=== PATIENT | male | born 1940 | race Caucasian/White ===

== ENCOUNTER → 2018-12-06 | Outpatient (CLI) | payer MEDICARE, OTHER ==
[~2018-12-06] MED LIST: AMLO5 PO; AMOX875 PO; ASPI325 PO; CLON.1 PO; LEVFLO500 PO; LEVSOD100 PO; LISI20 PO; Mobic15 MG PO; XARELTO20 MG PO
== END | disposition home or self-care (01) ==
LOC: LAB EV 07:50
DX: J44.1 Chronic obstructive pulmonary disease with (acute) exacerbation (principal)
CPT/HCPCS: 87070; 87205

== ENCOUNTER 2019-12-19 08:32 | Day surgery (SDC) | payer MEDICARE, OTHER ==
[~2019-12-19] VITALS: Ht 172.7 cm; Wt 82.3 kg
[~2019-12-19 08:32] MED LIST changes: +ALBU90OI INH; +AMLODIPINE-ATO1 EACH PO; +BUDE.25 NEB; +CALCIUM PO; +GABA300 PO; +Glucosamine Co1 EAC1 PO; +LORA.5 PO; +THERA1 EACH PO; +TIOT18 INH
--- NOTE | 2019-12-19 10:10 | NUR ---
"DAY SURGERY RN | TO OR BOTH DOCTORS AND CHIEF RESERVOIR ENGINEERING HAVE SEEN. UP TO BATHROOM PRIOR TO PROCEDURE. ALL CHECKS DONE. REPORT TO SALVATORE OSORIO. TO OR."
--- NOTE | 2019-12-19 13:48 | NUR ---
PT GIVEN NORCO FOR PAIN. PT STATES HIS PAIN IN 8 ON A SCALE FROM 0 TO 10. PT HAS TAKEN CRACKERS AND DRANK A FULL GLASS OF WATER.
--- NOTE | 2019-12-19 14:58 | NUR ---
ALL IV DC'D INTACT. DC INSTRUCTIONS REVIEWED WITH PATIENT AND . PT REPORTS PAIN IMPROVING PT TAKEN OUT OF DEPARTMENT VAI WHEELCHAIR BY PIEDAD
--- NOTE | 2019-12-19 16:03 | NUR ---
Patient States Post-Procedure ride home has been arranged. Discharged via wheelchair to private car for ride home. Discharge instructions reviewed with patient. Patient verbalizes understanding. Copy given to patient to take home.
== END 2019-12-19 14:58 | disposition home or self-care (01) ==
LOC: ORSCMMR 08:32 → ORD 10:00 → ORSCMMR 14:58
PROVIDERS: Surgery
PROC: 8E0W4CZ Robotic Assisted Procedure of Trunk Region, Percutaneous Endoscopic Approach (ICD-10-PCS; principal; 2019-12-19 10:00)
PROC: 0WUF0JZ Supplement Abdominal Wall with Synthetic Substitute, Open Approach (ICD-10-PCS; principal; 2019-12-19 10:00)
PROC: 0YU54JZ Supplement Right Inguinal Region with Synthetic Substitute, Percutaneous Endoscopic Approach (ICD-10-PCS; principal; 2019-12-19 10:00)
DX: K40.90 Unilateral inguinal hernia, without obstruction or gangrene, not specified as recurrent (principal); K42.9 Umbilical hernia without obstruction or gangrene; I10 Essential (primary) hypertension; I25.10 Atherosclerotic heart disease of native coronary artery without angina pectoris; J44.9 Chronic obstructive pulmonary disease, unspecified; G47.33 Obstructive sleep apnea (adult) (pediatric); Z87.891 Personal history of nicotine dependence; E03.9 Hypothyroidism, unspecified; F03.90 Unspecified dementia, unspecified severity, without behavioral disturbance, psychotic disturbance, mood disturbance, and anxiety; Z79.899 Other long term (current) drug therapy
CPT/HCPCS: 49650; 49585; S2900; A9270-GY; C1781; J0690; J1100; J2250; J2370; J2405; J2704; J2710; J3010; J7120

== ENCOUNTER → 2021-07-19 | Outpatient (CLI) | payer MEDICARE, OTHER | END | disposition home or self-care (01) | LOC: LAB SHORT 14:30 | DX: D48.5 Neoplasm of uncertain behavior of skin (principal) | CPT/HCPCS: 88305 ==

== ENCOUNTER 2021-08-02 20:18 | Observation (INO) | payer MEDICARE, OTHER ==
[~2021-08-02] VITALS: Ht 172.7 cm; Wt 83.7 kg
[~2021-08-02 20:18] MED LIST changes: -AMLODIPINE-ATO1 EACH PO; -BUDE.25 NEB; -GABA300 PO; -LEVSOD100 PO; -XARELTO20 MG PO
[2021-08-02 21:08] LABS: BASOPHILS ABSOLUTE AUTO 0.06 K/mm3 (0.00-0.23); BASOPHILS PERCENT AUTO 1 % (0-2); EOSINOPHILS ABSOLUTE AUTO 0.01 K/mm3 (0.00-0.68); EOSINOPHILS PERCENT AUTO 0 % (0-6); Hematocrit 39.2 % (37.0-53.0); Hemoglobin 13.1 g/dL (13.5-17.5); IMMATURE GRAN ABSOLUTE AUTO 0.03 K/mm3 (0.00-0.10); IMMATURE GRAN PERCENT AUTO 0 % (0-1); LYMPHOCYTES ABSOLUTE AUTO 0.37 K/mm3 (0.84-5.20); LYMPHOCYTES PERCENT AUTO 4 % (21-46); MONOCYTES ABSOLUTE AUTO 0.82 K/mm3 (0.16-1.47); MONOCYTES PERCENT AUTO 9 % (4-13); Mean Corpuscular HGB 31.4 pg (26.0-34.0); Mean Corpuscular HGB Conc 33.4 g/dL (31.5-36.5); Mean Corpuscular Volume 94 fL (80-100); Mean Platelet Volume 9.9 fL (9.1-12.4); NEUTROPHILS ABSOLUTE AUTO 7.54 K/mm3 (1.96-9.15); NEUTROPHILS PERCENT AUTO 85 % (41-73); Platelet Count 197 K/mm3 (150-400); RDW Standard Deviation 44.7 fL (35.1-46.3); Red Blood Cell Count 4.17 M/mm3 (4.30-5.90); White Blood Cell Count 8.83 K/mm3 (4.00-11.30)
[2021-08-02 21:29] LABS: Albumin, Blood 2.9 g/dL (3.4-5.0); Albumin/Globulin Ratio 0.9 (0.8-1.8); Bilirubin, Total 0.5 mg/dL (0.1-1.0); Bun/Creatinine Ratio 11.9 (12.0-20.0); Calcium, Blood 7.8 mg/dL (8.5-10.1); Creatinine, Blood 1.18 mg/dL (0.60-1.20); Globulin, Blood 3.4 g/dL (2.2-4.0); Total Protein, Blood 6.3 g/dL (6.4-8.2); Troponin I 0.059 ng/mL (0.000-0.040)
[2021-08-02] MEDS ORDERED: TRIDERM28.4 GM TOP (21:49)
[2021-08-02] MEDS ORDERED: SPIRONOLACTONE25 MG PO (21:50)
[2021-08-02] MEDS ORDERED: SYMBICORT 160-4.6 GM INH (21:51)
[2021-08-02] MEDS ORDERED: EUTHYROX175 MCG PO (21:52)
[2021-08-02] MEDS ORDERED: AMLODIPINE BESYL5 MG PO (21:53)
[2021-08-02] MEDS ORDERED: GABA300 PO (21:53)
[2021-08-02] MEDS ORDERED: ZESTRIL40 M1 PO (21:54)
[2021-08-02] MEDS ORDERED: XARELTO20 MG PO (21:54)
--- NOTE | 2021-08-02 23:50 | NUR ---
TRANSFER NOTE REPORT FROM ESTEFANÍA ZIMMERMAN NURSE. PT TO FLOOR VIA [facility] AND IS SLID OVER TO THE HOSPITAL BED. PT ON 2L BY SHUN. ORIENTED TO FLOOR AND UNIT. PT CALL LIGHT WITHIN REACH. BED ALARM ON.
--- NOTE | 2021-08-03 04:39 | NUR ---
TARGET PROTECTION SPECIALIST SUMMARY ADMITTED FOR ACUTE HEPATIC ENCEPHALOPATHY SECONDARY TO COVID. PT IS FULL CODE. PT EXTREMELY WEAK WHEN ATTEMPTING TO STAND TO USE URINAL - THIS RN SUGGESTED STAYING IN BED FOR FURTHER URINAL USAGE. PT RESTING ON 2L BY NC WITHOUT DISTRESS. NO OTHER CONCERNS THIS SHIFT.
--- NOTE | 2021-08-03 06:20 | NUR ---
PT ATTEMPTED TO GET OUT OF BED HIMSELF TO USE URINAL. PT TOO WEAK TO STAND ON HIS OWN AND SOILED THE BED AND HIS PULLUP. PT AND LINEN CHANGED. PT REQUIRING FULL SUPPORT TO STAND AND ONLY ABLE TO STAND FOR SHORT PERIODS.
--- NOTE | 2021-08-03 13:04 | NUR ---
Case Conference Note Reviewed chart and discussed case with Primary RN Sol. Pt and family may benefit from advanced care planning. Called and spoke with Pt's spouse Edilia. Provided update and discussed PT recommendations for home health. Edilia agrees with recommendations and reports Pt functions better at home. Gentle education on advanced care planning including planning for the future. Discussed AD/POLST with Guilherme reporting Pt has at home just hasn't completed yet. Gentle education on life sustaining treatments including risk factors and implications of CPR. Saludjaneth reports Pt would want CPR and would want short term intubation. She reports Pt would not want group home intubation. Offered therapeutic listening and answered questions. Deffered some questions for D/C Correctional Officer Captain Aracelis. Guilherme expresses appreciation and reports no ohter concerns at this time. Palliative Care will remain available.
--- NOTE | 2021-08-03 17:49 | NUR ---
SHIFT SUMMARY: NO ACUTE EVENTS. A&O X 2, PLEASANT, FORGETFUL, NEEDS CUES TO PERFORM TASKS. O2 @ 2 L/MIN NC, NO COUGH. LUNGS DIM THROUGHOUT. URINAL/BSC WITH ASSISTANCE. HAVING LOOSE STOOL. C/O HOANG, RELIEVED WITH TYLENOL. WORKED WITH PT/OT. VISITED; DR. CID TO BEDSIDE THIS EVENING TO DISCUSS D/C PLAN WITH HER.
--- NOTE | 2021-08-04 06:01 | NUR ---
SHIFT SUMMARY PATIENT ALERT AND ORIENTED X2. MEDICATED PER EMAR FOR PAIN. NO COMPLAINTS OF SHORTNESS OF BREATH. O2 TITRATED DOWN TO ROOM AIR. NO ACUTE ISSUES NOTED OVERNIGHT. CALL LIGHT WITHIN REACH. REPORT GIVEN TO ONCOMING RN.
[2021-08-04 07:41] LABS: Albumin, Blood 2.8 g/dL (3.4-5.0); Anion Gap 5 mmol/L (6-16); Blood Urea Nitrogen 21 mg/dL (8-24); Bun/Creatinine Ratio 17.9 (12.0-20.0); CO2, Blood 24 mmol/L (21-32); Calcium, Blood 8.4 mg/dL (8.5-10.1); Chloride, Blood 108 mmol/L (98-108); Creatinine, Blood 1.17 mg/dL (0.60-1.20); Glomerular Filtration Rate 60 (60-); Glucose, Blood 87 mg/dL (70-99); Phosphorus, Blood 3.3 mg/dL (2.5-4.9); Potassium, Blood 4.2 mmol/L (3.5-5.5); Sodium, Blood 137 mmol/L (136-145)
--- NOTE | 2021-08-04 08:00 | NUR ---
pt sitting up in chair for breakfast, came to door when he heard nurses outside to speak to us, a/ox3, but a bit forgetful at times, pleasant and cooperative with care, follows commands well, denies pain, lungs are clear dim in bases, resp even and unlabored, no cough noted at this time, but pt reports an occational productive cough of small amount of sputum, hrr, +1 edema noted to b/l le, ppp+2, cap refill<3sec, vs stable, afebrile, piv site to lfa, site is clear and patent, btx4, abd flat soft nontender, voids without diff, skin has a small tear to left wrist, bandaid placed, and has a wound in the glutial fold, barrier cream is being applied as needed, sydni al, call light in reach.
--- NOTE | 2021-08-04 13:46 | NUR ---
pt has been discharged with homehealth, went over discharge instructions with him and his , they verbalized understanding, iv removed intact, left via wheelchair with magazine hand in attendence with all belongings.
== END 2021-08-04 13:47 | disposition home health service (06) ==
LOC: ER 20:18 → MEDS 20:19
PROVIDERS: Emergency Medicine; Family Medicine; ADMIT Internal Medicine
DX: U07.1 COVID-19 (principal); G92.8 Other toxic encephalopathy; F03.90 Unspecified dementia, unspecified severity, without behavioral disturbance, psychotic disturbance, mood disturbance, and anxiety; E86.0 Dehydration; I73.9 Peripheral vascular disease, unspecified; I10 Essential (primary) hypertension; E03.9 Hypothyroidism, unspecified; J45.909 Unspecified asthma, uncomplicated; M41.9 Scoliosis, unspecified; Z87.891 Personal history of nicotine dependence; Z79.01 Long term (current) use of anticoagulants
CPT/HCPCS: 36415; 71045; 80053; 80069; 83880; 84484; 85025; 93005; 93010; 94640; 94664; 94760; 97110; 97162; 97166; 97530; 99285-25; A9270; G0378

== ENCOUNTER 2023-05-10 07:42 | Day surgery (SDC) | payer MEDICARE, OTHER ==
[~2023-05-10] VITALS: Ht 172.7 cm; Wt 80.5 kg
[~2023-05-10 07:42] MED LIST changes: +AMLODIPINE BESYL5 MG PO; +EUTHYROX175 MCG PO; +GABA300 PO; +SPIRONOLACTONE25 MG PO; +SYMBICORT 160-4.6 GM INH; +TRIDERM28.4 GM TOP; +XARELTO20 MG PO; +ZESTRIL40 M1 PO
--- NOTE | 2023-05-10 08:13 | NUR ---
05/10/23 0813 Farideh Lo AT 0808 PLEDGET AT 0810
[2023-05-10 09:13] VITALS: BP 120/73
== END 2023-05-10 09:40 | disposition home or self-care (01) ==
LOC: ORSCSDS 07:42
PROVIDERS: Ophthalmology
PROC: 08RK3JZ Replacement of Left Lens with Synthetic Substitute, Percutaneous Approach (ICD-10-PCS; principal; 2023-05-10 09:00)
DX: H25.12 Age-related nuclear cataract, left eye (principal); F41.9 Anxiety disorder, unspecified; E78.5 Hyperlipidemia, unspecified; J44.9 Chronic obstructive pulmonary disease, unspecified; Z86.711 Personal history of pulmonary embolism; I10 Essential (primary) hypertension; Z86.718 Personal history of other venous thrombosis and embolism; G47.33 Obstructive sleep apnea (adult) (pediatric); Z87.891 Personal history of nicotine dependence; Z79.01 Long term (current) use of anticoagulants; Z79.899 Other long term (current) drug therapy
CPT/HCPCS: J2250; J3010; J3301; J7040; V2632

== ENCOUNTER 2023-05-24 09:12 | Day surgery (SDC) | payer MEDICARE, OTHER | END 2023-05-24 10:49 | disposition home or self-care (01) | LOC: ORSCSDS 09:12 | PROC: 08RJ3JZ Replacement of Right Lens with Synthetic Substitute, Percutaneous Approach (ICD-10-PCS; principal; 2023-05-24) | DX: H25.11 Age-related nuclear cataract, right eye (principal); Z96.1 Presence of intraocular lens; I10 Essential (primary) hypertension; G47.33 Obstructive sleep apnea (adult) (pediatric); Z79.899 Other long term (current) drug therapy; H40.9 Unspecified glaucoma; E78.5 Hyperlipidemia, unspecified; Z86.711 Personal history of pulmonary embolism; F41.9 Anxiety disorder, unspecified; J44.9 Chronic obstructive pulmonary disease, unspecified; Z79.01 Long term (current) use of anticoagulants ==

== ENCOUNTER 2024-04-23 11:40 | Inpatient (IN) | payer MEDICARE, OTHER ==
[~2024-04-23] VITALS: Ht 167.6 cm; Wt 81.2 kg
[2024-04-23] MEDS ORDERED: MethylPREDNISolone Sod Succ 125 MG Vial IV ONE (12:00)
[2024-04-23] MEDS ORDERED: NS 1,000 ML IV SCH ×3 (12:00→15:30)
[2024-04-23] MEDS ORDERED: Ipratropium/Albuterol SulF 2.5-0.5MG/3 ML Amp INH ONE (12:00)
[2024-04-23] MEDS ORDERED: Cefepime HCl 2,000 MG in NS 100 ML IV ONE (12:05)
[2024-04-23 12:29] LABS: Hematocrit 44.3 % (37.0-53.0); Hemoglobin 14.9 g/dL (13.5-17.5); Mean Corpuscular HGB 31.3 pg (26.0-34.0); Mean Corpuscular HGB Conc 33.6 g/dL (31.5-36.5); Mean Corpuscular Volume 93 fL (80-100); Mean Platelet Volume 9.7 fL (9.1-12.4); Platelet Count 261 K/mm3 (150-400); RDW Standard Deviation 48.3 fL (35.1-46.3); Red Blood Cell Count 4.76 M/mm3 (4.30-5.90); White Blood Cell Count 17.76 K/mm3 (4.00-11.30)
[2024-04-23 12:47] LABS: Albumin, Blood 3.4 g/dL (3.4-5.0); Albumin/Globulin Ratio 0.8 (0.8-1.8); Bun/Creatinine Ratio 17.8 (12.0-20.0); Calcium, Blood 8.8 mg/dL (8.5-10.1); Creatinine, Blood 1.35 mg/dL (0.60-1.20); Potassium, Blood 4.3 mmol/L (3.5-5.5); Total Protein, Blood 7.4 g/dL (6.4-8.2)
[2024-04-23 12:59] LABS: BAND PERCENT MAN 12 % (0-8); BASOPHILS PERCENT MAN 0 % (0-2); EOSINOPHILS PERCENT MAN 0 % (0-6); LYMPHOCYTES ABSOLUTE MAN 1.06 K/mm3 (0.84-5.20); LYMPHOCYTES PERCENT MAN 6 % (21-46); MONOCYTES ABSOLUTE MAN 1.59 K/mm3 (0.16-1.47); MONOCYTES PERCENT MAN 9 % (4-13); NEUTROPHILS ABSOLUTE MAN 15.09 K/mm3 (1.96-9.15); SEG NEUTROPHILS PERCENT MAN 73 % (41-73); TOTAL CELLS COUNTED 100
[2024-04-23 13:10] LABS: Influenza A, PCR NEGATIVE (NEGATIVE); Influenza B, PCR NEGATIVE (NEGATIVE); Resp Syncytial Virus, PCR NEGATIVE (NEGATIVE); SARS-Cov-2 (COVID-19) PCR, MMC NEGATIVE (NEGATIVE)
[2024-04-23] MEDS ORDERED: Acetaminophen 500 MG Tab PO ONE (13:50)
[2024-04-23 13:53] LABS: Base Excess Venous -0.1 mmol/L; Bicarbonate Venous 22.6 mmol/L (24.0-30.0); PCO2 Venous 52 mmHg (38-42); pH Blood Venous 7.31 (7.34-7.37)
[2024-04-23] MEDS ORDERED: Mometasone/Formoterol MDI 100/5 mcg 13 GM INH SCH (15:45)
--- NOTE | 2024-04-23 18:45 | NUR ---
Pt transfer to floor at 1820, A-Ox4, on 4L NC, non-blanchble redness to butox, bed in lowest positoin, call wilkerson in hand, bed in lowest position.
[2024-04-23 18:53] VITALS: BP 132/79
[2024-04-23] MEDS ORDERED: Gabapentin 300 MG Cap PO SCH (21:00)
[2024-04-23] MEDS ORDERED: Acetaminophen 325 MG TABLET PO PRN (22:00)
[2024-04-23] MEDS ORDERED: Benzonatate 100 MG Cap PO PRN (22:00)
[2024-04-24 04:13] VITALS: BP 116/83
--- NOTE | 2024-04-24 05:42 | NUR ---
SHIFT SUMMARY PT A&OX4 AND PLEASANT. PT'S LACTIC ACID STILL ELEVATED BUT TRENDING DOWN SLIGHTLY. VSS. REMAINS OF 4L OF OXYGEN AND SATING >93%. PT C/O TIGHTNESS IN LUNGS AND HAS WEAK PRODUCTIVE COUGH. PT ALSO C/O NECK PAIN. MEDICATED PER EMAR WITH GOOD EFFECT. PT UP TO BSC AND ABLE TO HAVE BM. NO EVENTS ON TELE. BED ALARM ON. BED IN LOWEST POSITION AND CALL LIGHT IN REACH.
[2024-04-24] MEDS ORDERED: Levothyroxine Sodium 0.175 MG TAB PO SCH (06:00)
[2024-04-24 06:15] LABS: BASOPHILS ABSOLUTE AUTO 0.04 K/mm3 (0.00-0.23); BASOPHILS PERCENT AUTO 0 % (0-2); EOSINOPHILS ABSOLUTE AUTO 0.12 K/mm3 (0.00-0.68); EOSINOPHILS PERCENT AUTO 1 % (0-6); Hematocrit 37.1 % (37.0-53.0); Hemoglobin 12.5 g/dL (13.5-17.5); IMMATURE GRAN PERCENT AUTO 1 % (0-1); LYMPHOCYTES ABSOLUTE AUTO 1.01 K/mm3 (0.84-5.20); LYMPHOCYTES PERCENT AUTO 6 % (21-46); MONOCYTES ABSOLUTE AUTO 0.98 K/mm3 (0.16-1.47); MONOCYTES PERCENT AUTO 6 % (4-13); Mean Corpuscular HGB 31.4 pg (26.0-34.0); Mean Corpuscular HGB Conc 33.7 g/dL (31.5-36.5); Mean Corpuscular Volume 93 fL (80-100); Mean Platelet Volume 9.8 fL (9.1-12.4); NEUTROPHILS ABSOLUTE AUTO 15.39 K/mm3 (1.96-9.15); NEUTROPHILS PERCENT AUTO 87 % (41-73); Platelet Count 233 K/mm3 (150-400); RDW Coefficient Variation 14.1 % (11.7-14.2); RDW Standard Deviation 48.2 fL (35.1-46.3); Red Blood Cell Count 3.98 M/mm3 (4.30-5.90); White Blood Cell Count 17.64 K/mm3 (4.00-11.30)
[2024-04-24 06:35] LABS: Albumin, Blood 2.5 g/dL (3.4-5.0); Albumin/Globulin Ratio 0.7 (0.8-1.8); Bilirubin, Total 0.5 mg/dL (0.1-1.0); Bun/Creatinine Ratio 25.6 (12.0-20.0); Calcium, Blood 7.8 mg/dL (8.5-10.1); Creatinine, Blood 1.25 mg/dL (0.60-1.20); Globulin, Blood 3.6 g/dL (2.2-4.0); Potassium, Blood 4.9 mmol/L (3.5-5.5); Total Protein, Blood 6.1 g/dL (6.4-8.2)
[2024-04-24] MEDS ORDERED: Ipratropium/Albuterol SulF 2.5-0.5MG/3 ML Amp INH PRN (07:20)
[2024-04-24 07:32] VITALS: BP 138/76
[2024-04-24] MEDS ORDERED: Cefepime HCl 2,000 MG in NS 100 ML IV SCH (08:00)
[2024-04-24] MEDS ORDERED: NS 250 ML IV PRN (08:15)
[2024-04-24] MEDS ORDERED: Rivaroxaban 10 MG Tab PO SCH (09:00)
[2024-04-24 15:19] VITALS: BP 118/73
[2024-04-24 19:38] VITALS: BP 141/74
--- NOTE | 2024-04-24 19:50 | NUR ---
ASSUMED CARE OF PT AT 1200. PT PLEASANT THIS AFTERNOON. NO C/O PAIN. O2 DOWN TO 3L THIS TYREL. IN TO VISIT TODAY. PT STATES SOME SMALL IMPROVEMENT TODAY. NO OTHER CONCERNS NOTED. BED IN LOW POSITION, CALL LITE IN REACH. CALLS APPROP
[2024-04-25 02:59] VITALS: BP 124/68
--- NOTE | 2024-04-25 04:18 | NUR ---
SHIFT SUMMARY PATIENT HAD NO ACUTE CHANGES. AXOX 4 AND 2 MAX ASSIST GB/FWW TO BSC. REPORTED COUGH AND TESSALON 100 MG GIVEN PER EMAR WITH GOOD EFFECT. DENIES CHEST PAIN AND N/V. VSS/AFEBRILE. PIV INTACT. IV ABX INFUSED. TELE MONITOR NSR 66. ON 3L O2 N/C AND RA BASELINE. RT IN FOR BREATHING TX. CALL LIGHT IN REACH. BED IN LOWEST POSITION. WILL CONTINUE TO MONITOR UNTIL DAY SHIFT NURSE ASSUMES CARE.
[2024-04-25 06:13] LABS: BASOPHILS ABSOLUTE AUTO 0.05 K/mm3 (0.00-0.23); BASOPHILS PERCENT AUTO 0 % (0-2); EOSINOPHILS ABSOLUTE AUTO 0.01 K/mm3 (0.00-0.68); EOSINOPHILS PERCENT AUTO 0 % (0-6); Hematocrit 37.5 % (37.0-53.0); Hemoglobin 12.6 g/dL (13.5-17.5); IMMATURE GRAN ABSOLUTE AUTO 0.33 K/mm3 (0.00-0.10); IMMATURE GRAN PERCENT AUTO 2 % (0-1); LYMPHOCYTES ABSOLUTE AUTO 1.51 K/mm3 (0.84-5.20); LYMPHOCYTES PERCENT AUTO 8 % (21-46); MONOCYTES ABSOLUTE AUTO 1.27 K/mm3 (0.16-1.47); MONOCYTES PERCENT AUTO 7 % (4-13); Mean Corpuscular HGB 31.1 pg (26.0-34.0); Mean Corpuscular HGB Conc 33.6 g/dL (31.5-36.5); Mean Corpuscular Volume 93 fL (80-100); Mean Platelet Volume 10.5 fL (9.1-12.4); NEUTROPHILS ABSOLUTE AUTO 16.31 K/mm3 (1.96-9.15); NEUTROPHILS PERCENT AUTO 84 % (41-73); Platelet Count 276 K/mm3 (150-400); RDW Coefficient Variation 14.1 % (11.7-14.2); RDW Standard Deviation 48.4 fL (35.1-46.3); Red Blood Cell Count 4.05 M/mm3 (4.30-5.90); White Blood Cell Count 19.48 K/mm3 (4.00-11.30)
[2024-04-25 06:37] LABS: Albumin, Blood 2.5 g/dL (3.4-5.0); Albumin/Globulin Ratio 0.7 (0.8-1.8); Bilirubin, Total 0.5 mg/dL (0.1-1.0); Creatinine, Blood 1.06 mg/dL (0.60-1.20); Globulin, Blood 3.5 g/dL (2.2-4.0); Potassium, Blood 4.8 mmol/L (3.5-5.5)
[2024-04-25 07:27] VITALS: BP 132/77
[2024-04-25] MEDS ORDERED: LevoFLOXacin 750 MG/D5W 150ML 150 ML IV SCH (12:00)
[2024-04-25 15:04] VITALS: BP 113/57
--- NOTE | 2024-04-25 15:49 | NUR ---
ASSUMED CARE. PATIENT RESTING IN BED, ABX INFUSING, IV PATENT, C/O ITCHING UNDER THE TAPE, SITE LOOKS GOOD. 3 LITERS O2 NASAL CANNULA. CALL LIGHT IN REACH.
[2024-04-25 19:25] VITALS: BP 116/81
[2024-04-26 04:29] VITALS: BP 131/76
[2024-04-26 05:54] LABS: Hematocrit 38.3 % (37.0-53.0); Hemoglobin 12.7 g/dL (13.5-17.5); Mean Corpuscular HGB 30.5 pg (26.0-34.0); Mean Corpuscular HGB Conc 33.2 g/dL (31.5-36.5); Mean Corpuscular Volume 92 fL (80-100); Platelet Count 307 K/mm3 (150-400); RDW Coefficient Variation 14.1 % (11.7-14.2); RDW Standard Deviation 48.1 fL (35.1-46.3); Red Blood Cell Count 4.17 M/mm3 (4.30-5.90); White Blood Cell Count 13.03 K/mm3 (4.00-11.30)
--- NOTE | 2024-04-26 06:07 | NUR ---
CARBON COATER MACHINE OPERATOR SUMMARY PT A/OX4. ABLE TO MAKE NEEDS KNOWN. PLEASANT AND COOPERATIVE. PT C/O BACK PAIN. MED WITH TYLENOL WITH GOOD EFFECT. NO ACUTE CHANGES. CALL LIGHT ACCESSIBLE.
[2024-04-26 06:13] LABS: Albumin, Blood 2.5 g/dL (3.4-5.0); Albumin/Globulin Ratio 0.7 (0.8-1.8); Bilirubin, Total 0.5 mg/dL (0.1-1.0); Bun/Creatinine Ratio 24.1 (12.0-20.0); Calcium, Blood 8.1 mg/dL (8.5-10.1); Creatinine, Blood 1.12 mg/dL (0.60-1.20); Globulin, Blood 3.7 g/dL (2.2-4.0); Potassium, Blood 4.6 mmol/L (3.5-5.5); Total Protein, Blood 6.2 g/dL (6.4-8.2)
[2024-04-26 06:17] LABS: BAND PERCENT MAN 3 % (0-8); BASOPHILS ABSOLUTE MAN 0.26 K/mm3 (0.00-0.23); BASOPHILS PERCENT MAN 2 % (0-2); EOSINOPHILS PERCENT MAN 0 % (0-6); LYMPHOCYTES ABSOLUTE MAN 2.21 K/mm3 (0.84-5.20); LYMPHOCYTES PERCENT MAN 17 % (21-46); METAMYELOCYTE ABSOLUTE MAN 0.26 K/mm3 (0.00-0.00); METAMYELOCYTE PERCENT MAN 2 % (0-0); MONOCYTES ABSOLUTE MAN 1.17 K/mm3 (0.16-1.47); MONOCYTES PERCENT MAN 9 % (4-13); MYELOCYTE ABSOLUTE MAN 0.65 K/mm3 (0.00-0.00); MYELOCYTE PERCENT MAN 5 % (0-0); NEUTROPHILS ABSOLUTE MAN 8.46 K/mm3 (1.96-9.15); SEG NEUTROPHILS PERCENT MAN 62 % (41-73); TOTAL CELLS COUNTED 100
[2024-04-26 07:33] VITALS: BP 134/90
[2024-04-26 14:47] VITALS: BP 130/76
--- NOTE | 2024-04-26 18:42 | NUR ---
PATIENT A/OX4, UP WITH FWW AND 1 ASSIST. 2LO2 TO MAINTAIN SATS, RA AT BASELINE. ZOSYN AND LEAVAQUIN GIVEN TO TREAT PNA. PATIENT SOB WITH EXERTION, COUGHING UP THICK/YELLOW SPUTUM. TYLENOL GIVEN X2 TODAY FOR PAIN IN BUTTOCKS. UP IN CHAIE FOR MEALS. FAMILY AT BEDSIDE FOR MOST OF THE DAY. PLEASANT AND COOPERATIVE WITH CARE. NO NEW CONCERNS THIS SHIFT.
[2024-04-26 19:22] VITALS: BP 132/84
[2024-04-27 02:52] VITALS: BP 132/82
--- NOTE | 2024-04-27 05:10 | NUR ---
SOLID WASTE LANDFILL TECHNICIAN SUMMARY PT A/OX4. NO ACUTE CHANGES. PT REMAINS ON 2L O2 VIA NC. PT ABLE TO MAKE NEEDS KNOWN. PT REQUESTING TYLENOL AT BEDTIME; 2100. ORDER FOR Q6 TYLENOL AND LAST TAKEN AT 1745. CALL TO WHEAT WASHER/DR BUCHANAN; APPROVED ORDER TO GIVE NEXT DOSE TYLENOL EARLY--ADMINISTERED AT 215. PT CALL LIGHT ACCESSIBLE. EDUCATED PT ON IMPORTANCE OF CALLING FOR ASSITANCE OOB. PT UNSTEADY ON FEET AND REQUIRING 1PA. REGULAR INTERVAL ROUNDING T/O SHIFT.
[2024-04-27 06:03] LABS: Hematocrit 38.6 % (37.0-53.0); Mean Corpuscular HGB 31.2 pg (26.0-34.0); Mean Corpuscular HGB Conc 33.7 g/dL (31.5-36.5); Mean Corpuscular Volume 93 fL (80-100); Mean Platelet Volume 9.7 fL (9.1-12.4); Platelet Count 306 K/mm3 (150-400); RDW Coefficient Variation 14.2 % (11.7-14.2); RDW Standard Deviation 48.4 fL (35.1-46.3); Red Blood Cell Count 4.17 M/mm3 (4.30-5.90); White Blood Cell Count 13.53 K/mm3 (4.00-11.30)
[2024-04-27 06:21] LABS: Bun/Creatinine Ratio 18.1 (12.0-20.0); Calcium, Blood 8.3 mg/dL (8.5-10.1); Creatinine, Blood 1.16 mg/dL (0.60-1.20); Potassium, Blood 4.5 mmol/L (3.5-5.5)
[2024-04-27 06:23] LABS: BAND PERCENT MAN 4 % (0-8); BASOPHILS ABSOLUTE MAN 0.13 K/mm3 (0.00-0.23); BASOPHILS PERCENT MAN 1 % (0-2); EOSINOPHILS ABSOLUTE MAN 0.13 K/mm3 (0.00-0.68); EOSINOPHILS PERCENT MAN 1 % (0-6); LYMPHOCYTES % ATYPICAL MANUAL 1 % (0-0); LYMPHOCYTES ABSOLUTE MAN 2.84 K/mm3 (0.84-5.20); LYMPHOCYTES PERCENT MAN 20 % (21-46); METAMYELOCYTE ABSOLUTE MAN 0.54 K/mm3 (0.00-0.00); METAMYELOCYTE PERCENT MAN 4 % (0-0); MONOCYTES ABSOLUTE MAN 1.62 K/mm3 (0.16-1.47); MONOCYTES PERCENT MAN 12 % (4-13); MYELOCYTE ABSOLUTE MAN 0.67 K/mm3 (0.00-0.00); MYELOCYTE PERCENT MAN 5 % (0-0); NEUTROPHILS ABSOLUTE MAN 7.57 K/mm3 (1.96-9.15); SEG NEUTROPHILS PERCENT MAN 52 % (41-73); TOTAL CELLS COUNTED 100
[2024-04-27 07:11] VITALS: BP 140/79
[2024-04-27] MEDS ORDERED: Acetaminophen650 M1 PO (13:52)
[2024-04-27] MEDS ORDERED: BENZ100A PO (13:53)
[2024-04-27] MEDS ORDERED: LEVO750 PO (13:54)
--- NOTE | 2024-04-27 14:05 | NUR ---
SHIFT/DISCHARGE SUMMARY: PATIENT A/OX3-4, FORGETFUL AT TIMES, PLEASANT AND COOPERATIVE c CARE. PATIENT DENIES CP/PRESSURE, SOB, N/V AND DIZZINESS. PATIENT ON TELE, SR HR IN THE LOW 60'S BPM. PATIENT WAS ON 2L O2 AT BEGINNING OF SHIFT c SPO2 94-96%, TITRATED TO 1L SAT AT 94%. PATIENT PLACED ON RA AT 0930, SATTING 90-94%. PATIENT HAD HOME O2 EVAL CONDUCTED BY RT, AMBULATES APPROX 1000 FT, DID WELL, O2 c AMBULATION ON RA 95%. PATIENT CONTINENT/INCONTINENT OF BLADDER, AMBULATES TO BATHROOM c SBA. PATIENT RECEIVED IV ABX/SCHEDULED MEDS PER EMAR. PIV WAS DC'D BY MONATNA JERNIGAN. PATIENT DISCHARGE HOME c HH SERVICES. DISCHARGE INSTRUCTION PACKET GIVEN TO PATIENT. EDUCATE PATIENT AND SPOUSE REGARDING ADMITTING DX'S OF PNUEMONIA, S/S, TX, SELF CARE, NEW PRESCRIBED RX, AND TO F/U c PCP. PATIENT AND SPOUSE VERBALIZED UNDERSTANDING AND NO FURTHER QUESTIONS AT THIS TIME. ALL PATIENT PERSONAL BELONGINGS WERE SENT HOME c THE PATIENT. PATIENT LEFT THE ROOM AT 1427 AND TRANSPORTED VIA WHEELCHAIR BY SON PER PATIENT REQUEST.
== END 2024-04-27 14:30 | disposition home health service (06) | DRG 871 ==
LOC: ER 11:40 → MEDS 15:38
PROVIDERS: Emergency Medicine; ADMIT Internal Medicine
DX: A40.3 Sepsis due to Streptococcus pneumoniae (principal); G92.8 Other toxic encephalopathy; J96.01 Acute respiratory failure with hypoxia; J13 Pneumonia due to Streptococcus pneumoniae; R65.20 Severe sepsis without septic shock; J44.0 Chronic obstructive pulmonary disease with (acute) lower respiratory infection; E87.20 Acidosis, unspecified; I50.32 Chronic diastolic (congestive) heart failure; I73.9 Peripheral vascular disease, unspecified; E89.0 Postprocedural hypothyroidism; I35.0 Nonrheumatic aortic (valve) stenosis; I11.0 Hypertensive heart disease with heart failure; Z86.711 Personal history of pulmonary embolism; E78.00 Pure hypercholesterolemia, unspecified; F03.90 Unspecified dementia, unspecified severity, without behavioral disturbance, psychotic disturbance, mood disturbance, and anxiety; G62.9 Polyneuropathy, unspecified; Z98.890 Other specified postprocedural states; Z88.2 Allergy status to sulfonamides; Z88.8 Allergy status to other drugs, medicaments and biological substances; Z79.890 Hormone replacement therapy; Z79.899 Other long term (current) drug therapy; Z79.01 Long term (current) use of anticoagulants; Z99.81 Dependence on supplemental oxygen; Z87.442 Personal history of urinary calculi; Z87.891 Personal history of nicotine dependence
CPT/HCPCS: 0241U; 36415; 70450; 71045; 72125; 80048; 80053; 82803; 82947; 83605; 83880; 84145; 85025; 87040; 87070; 87186; 87205; 93005; 93010; 94640; 94664; 94760; 94761; 94762; 96361; 96365; 96375; 97110; 97116; 97162; 99285-25; A9270; J0692; J1956; J2919; J7030; J7050

== ENCOUNTER 2024-04-29 17:25 | Emergency (ER) | payer MEDICARE, OTHER ==
[~2024-04-29] VITALS: Ht 170.2 cm; Wt 73.5 kg
[~2024-04-29 17:25] MED LIST changes: +Acetaminophen650 M1 PO; +BENZ100A PO; +LEVO750 PO
[2024-04-29 19:00] LABS: Hematocrit 41.5 % (37.0-53.0); Hemoglobin 13.9 g/dL (13.5-17.5); Mean Corpuscular HGB 31.3 pg (26.0-34.0); Mean Corpuscular HGB Conc 33.5 g/dL (31.5-36.5); Mean Corpuscular Volume 94 fL (80-100); Mean Platelet Volume 9.4 fL (9.1-12.4); Platelet Count 377 K/mm3 (150-400); RDW Coefficient Variation 14.2 % (11.7-14.2); RDW Standard Deviation 48.6 fL (35.1-46.3); Red Blood Cell Count 4.44 M/mm3 (4.30-5.90); White Blood Cell Count 17.21 K/mm3 (4.00-11.30)
[2024-04-29 19:20] LABS: BAND PERCENT MAN 7 % (0-8); BASOPHILS PERCENT MAN 0 % (0-2); EOSINOPHILS ABSOLUTE MAN 0.34 K/mm3 (0.00-0.68); EOSINOPHILS PERCENT MAN 2 % (0-6); LYMPHOCYTES ABSOLUTE MAN 2.75 K/mm3 (0.84-5.20); LYMPHOCYTES PERCENT MAN 16 % (21-46); METAMYELOCYTE ABSOLUTE MAN 1.54 K/mm3 (0.00-0.00); METAMYELOCYTE PERCENT MAN 9 % (0-0); MONOCYTES ABSOLUTE MAN 0.86 K/mm3 (0.16-1.47); MONOCYTES PERCENT MAN 5 % (4-13); MYELOCYTE ABSOLUTE MAN 0.68 K/mm3 (0.00-0.00); MYELOCYTE PERCENT MAN 4 % (0-0); NEUTROPHILS ABSOLUTE MAN 11.01 K/mm3 (1.96-9.15); SEG NEUTROPHILS PERCENT MAN 57 % (41-73); TOTAL CELLS COUNTED 100
[2024-04-29 19:21] LABS: Albumin, Blood 2.9 g/dL (3.4-5.0); Albumin/Globulin Ratio 0.7 (0.8-1.8); Bilirubin, Total 0.4 mg/dL (0.1-1.0); Bun/Creatinine Ratio 21.6 (12.0-20.0); Calcium, Blood 8.6 mg/dL (8.5-10.1); Creatinine, Blood 1.16 mg/dL (0.60-1.20); Globulin, Blood 3.9 g/dL (2.2-4.0); Potassium, Blood 5.1 mmol/L (3.5-5.5); Total Protein, Blood 6.8 g/dL (6.4-8.2)
[2024-04-29] MEDS ORDERED: LEVO750 PO (21:34)
[2024-04-29 21:45] VITALS: BP 107/94
== END 2024-04-29 21:54 | disposition home or self-care (01) ==
LOC: ER 17:25
PROVIDERS: Emergency Medicine
DX: J18.9 Pneumonia, unspecified organism (principal); J44.9 Chronic obstructive pulmonary disease, unspecified; I10 Essential (primary) hypertension; Z88.2 Allergy status to sulfonamides; Z88.8 Allergy status to other drugs, medicaments and biological substances; Z79.890 Hormone replacement therapy; Z79.899 Other long term (current) drug therapy; Z79.02 Long term (current) use of antithrombotics/antiplatelets; Z87.891 Personal history of nicotine dependence
CPT/HCPCS: 71046; 80053; 83880; 85025; 93005; 93010; 99285-25

== ENCOUNTER 2024-08-01 19:15 | Emergency (ER) | payer MEDICARE, OTHER ==
[~2024-08-01] VITALS: Ht 172.7 cm; Wt 76.2 kg
[2024-08-01 19:48] LABS: BASOPHILS PERCENT AUTO 1 % (0-2); EOSINOPHILS ABSOLUTE AUTO 0.19 K/mm3 (0.00-0.68); EOSINOPHILS PERCENT AUTO 1 % (0-6); Hemoglobin 14.8 g/dL (13.5-17.5); IMMATURE GRAN ABSOLUTE AUTO 0.07 K/mm3 (0.00-0.10); IMMATURE GRAN PERCENT AUTO 1 % (0-1); LYMPHOCYTES ABSOLUTE AUTO 1.37 K/mm3 (0.84-5.20); LYMPHOCYTES PERCENT AUTO 9 % (21-46); MONOCYTES ABSOLUTE AUTO 1.37 K/mm3 (0.16-1.47); MONOCYTES PERCENT AUTO 9 % (4-13); Mean Corpuscular HGB 31.5 pg (26.0-34.0); Mean Corpuscular HGB Conc 32.9 g/dL (31.5-36.5); Mean Corpuscular Volume 96 fL (80-100); Mean Platelet Volume 9.3 fL (9.1-12.4); NEUTROPHILS PERCENT AUTO 79 % (41-73); Platelet Count 281 K/mm3 (150-400); RDW Coefficient Variation 13.9 % (11.7-14.2); RDW Standard Deviation 49.6 fL (35.1-46.3)
[2024-08-01 20:11] LABS: Albumin, Blood 3.4 g/dL (3.4-5.0); Albumin/Globulin Ratio 1.1 (0.8-1.8); Bilirubin, Total 0.7 mg/dL (0.1-1.0); Bun/Creatinine Ratio 17.5 (12.0-20.0); Calcium, Blood 8.6 mg/dL (8.5-10.1); Creatinine, Blood 0.97 mg/dL (0.60-1.20); Globulin, Blood 3.2 g/dL (2.2-4.0); Potassium, Blood 4.1 mmol/L (3.5-5.5); Total Protein, Blood 6.6 g/dL (6.4-8.2)
[2024-08-01] MEDS ORDERED: Ketorolac Tromethamine 15mg Vial IV ONE (20:55)
[2024-08-01 21:47] LABS: Influenza A, PCR NEGATIVE (NEGATIVE); Influenza B, PCR NEGATIVE (NEGATIVE); Resp Syncytial Virus, PCR NEGATIVE (NEGATIVE); SARS-Cov-2 (COVID-19) PCR, MMC NEGATIVE (NEGATIVE)
[2024-08-01 22:00] VITALS: BP 117/71
[2024-08-01 22:25] LABS: Source, Urine Clean Catch
[2024-08-01 22:28] LABS: Bilirubin, Urine Neg (Neg); Blood, Urine Neg (Neg); Glucose Qualitative, Urine Neg (Neg); Ketones, Urine Neg (Neg); Leukocyte Esterase, Urine Neg (Neg); Nitrite, Urine Neg (Neg); Protein, Urine Neg (Neg); Specific Gravity, Urine 1.015 (1.003-1.022); Urobilinogen, Urine NORM (Normal)
[2024-08-01 22:43] LABS: Appearance, Urine Clear (Clear); Color, Urine Yellow (P-Yellow)
== END 2024-08-01 23:07 | disposition home or self-care (01) ==
LOC: ER 19:15
PROVIDERS: Student in an Organized Health Care Education/Training Program
DX: R55 Syncope and collapse (principal); J06.9 Acute upper respiratory infection, unspecified; J44.89 Other specified chronic obstructive pulmonary disease; E03.9 Hypothyroidism, unspecified; I10 Essential (primary) hypertension; Z79.01 Long term (current) use of anticoagulants; Z87.891 Personal history of nicotine dependence; Z79.51 Long term (current) use of inhaled steroids; Z79.899 Other long term (current) drug therapy; Z88.2 Allergy status to sulfonamides; Z88.1 Allergy status to other antibiotic agents; Z88.6 Allergy status to analgesic agent; Z88.8 Allergy status to other drugs, medicaments and biological substances
CPT/HCPCS: 0241U; 71045; 80053; 81003; 84484; 85025; 93005; 93010; 96374; 99284-25; J1885

== ENCOUNTER → 2024-09-18 | Outpatient (CLI) | payer MEDICARE, OTHER ==
[2024-09-18 11:10] LABS: BASOPHILS ABSOLUTE AUTO 0.03 K/mm3 (0.00-0.23); BASOPHILS PERCENT AUTO 0 % (0-2); EOSINOPHILS ABSOLUTE AUTO 0.01 K/mm3 (0.00-0.68); EOSINOPHILS PERCENT AUTO 0 % (0-6); Hematocrit 44.2 % (37.0-53.0); Hemoglobin 14.5 g/dL (13.5-17.5); IMMATURE GRAN PERCENT AUTO 1 % (0-1); LYMPHOCYTES ABSOLUTE AUTO 1.07 K/mm3 (0.84-5.20); LYMPHOCYTES PERCENT AUTO 8 % (21-46); MONOCYTES ABSOLUTE AUTO 1.36 K/mm3 (0.16-1.47); MONOCYTES PERCENT AUTO 10 % (4-13); Mean Corpuscular HGB 30.8 pg (26.0-34.0); Mean Corpuscular HGB Conc 32.8 g/dL (31.5-36.5); Mean Corpuscular Volume 94 fL (80-100); Mean Platelet Volume 9.6 fL (9.1-12.4); NEUTROPHILS ABSOLUTE AUTO 10.99 K/mm3 (1.96-9.15); NEUTROPHILS PERCENT AUTO 81 % (41-73); Platelet Count 318 K/mm3 (150-400); RDW Coefficient Variation 13.4 % (11.7-14.2); Red Blood Cell Count 4.71 M/mm3 (4.30-5.90); White Blood Cell Count 13.56 K/mm3 (4.00-11.30)
[2024-09-18 11:17] LABS: Calcium, Blood 8.6 mg/dL (8.5-10.1); Creatinine, Blood 1.38 mg/dL (0.60-1.20); Potassium, Blood 4.3 mmol/L (3.5-5.5)
== END | disposition home or self-care (01) ==
LOC: LAB SHORT 11:06 → LAB 11:06
PROVIDERS: Physician Assistant Surgical
DX: R06.02 Shortness of breath (principal)
CPT/HCPCS: 80048; 83880; 84484; 85025

== ENCOUNTER → 2024-09-24 | Outpatient (CLI) | payer MEDICARE ==
[2024-09-24 10:45] LABS: BASOPHILS ABSOLUTE AUTO 0.07 K/mm3 (0.00-0.23); BASOPHILS PERCENT AUTO 1 % (0-2); EOSINOPHILS ABSOLUTE AUTO 0.15 K/mm3 (0.00-0.68); EOSINOPHILS PERCENT AUTO 1 % (0-6); Hematocrit 44.7 % (37.0-53.0); IMMATURE GRAN ABSOLUTE AUTO 0.26 K/mm3 (0.00-0.10); IMMATURE GRAN PERCENT AUTO 2 % (0-1); LYMPHOCYTES ABSOLUTE AUTO 1.82 K/mm3 (0.84-5.20); LYMPHOCYTES PERCENT AUTO 15 % (21-46); MONOCYTES ABSOLUTE AUTO 1.13 K/mm3 (0.16-1.47); MONOCYTES PERCENT AUTO 10 % (4-13); Mean Corpuscular HGB 31.1 pg (26.0-34.0); Mean Corpuscular HGB Conc 33.6 g/dL (31.5-36.5); Mean Corpuscular Volume 93 fL (80-100); Mean Platelet Volume 9.5 fL (9.1-12.4); NEUTROPHILS ABSOLUTE AUTO 8.39 K/mm3 (1.96-9.15); NEUTROPHILS PERCENT AUTO 71 % (41-73); Platelet Count 334 K/mm3 (150-400); RDW Coefficient Variation 13.3 % (11.7-14.2); RDW Standard Deviation 45.2 fL (35.1-46.3); Red Blood Cell Count 4.82 M/mm3 (4.30-5.90); White Blood Cell Count 11.82 K/mm3 (4.00-11.30)
[2024-09-24 11:20] LABS: Albumin, Blood 3.5 g/dL (3.4-5.0); Bilirubin, Total 0.7 mg/dL (0.1-1.0); Bun/Creatinine Ratio 25.2 (12.0-20.0); Calcium, Blood 9.2 mg/dL (8.5-10.1); Creatinine, Blood 1.27 mg/dL (0.60-1.20); Globulin, Blood 3.6 g/dL (2.2-4.0); Potassium, Blood 4.5 mmol/L (3.5-5.5); Total Protein, Blood 7.1 g/dL (6.4-8.2)
== END ==
LOC: LAB SHORT 10:38 → LAB 10:38
PROVIDERS: Chiropractor
DX: R07.89 Other chest pain (principal)
CPT/HCPCS: 80053; 84484; 85025; 85379